=== PATIENT | female | born 1985 | race Caucasian/White ===

== ENCOUNTER 2017-03-17 10:21 | Day surgery (SDC) | payer OTHER ==
[~2017-03-17] VITALS: Ht 157.5 cm; Wt 57.2 kg
[2017-03-17] MEDS ORDERED: BUPIVACAINE-MPF 0.25% 30 ML VIAL INJ ONE (11:50)
[2017-03-17] MEDS ORDERED: SEVOFLURANE 250 ML BTL INH ONE (12:01)
[2017-03-17] MEDS ORDERED: LIDOCAINE 2% 100 MG/5 ML SYR IVP ONE (12:01)
[2017-03-17] MEDS ORDERED: PROPOFOL 200 MG/20 ML VIAL IV ONE (12:01)
[2017-03-17] MEDS ORDERED: fentaNYL 0.05 MG/ML VIAL ONE (12:17)
[2017-03-17] MEDS ORDERED: MIDAZOLAM 2 MG/2 ML VIAL ONE (12:17)
[2017-03-17] MEDS ORDERED: ONDANSETRON 4 MG/2 ML VIAL IVP PRN (12:45)
[2017-03-17] MEDS ORDERED: HYDROmorphone 1 MG/ML AMP IVP PRN ×2 (12:45→14:20)
[2017-03-17] MEDS ORDERED: MORPHINE SULFATE 4 MG/ML SYR IV PRN (14:20)
[2017-03-17] MEDS ORDERED: ONDANSETRON 4 MG/2 ML VIAL IV PRN (14:20)
[2017-03-17] MEDS ORDERED: ACETAMINOPHEN 325 MG TAB PO PRN (14:20)
[2017-03-17] MEDS ORDERED: HYDROcodone/APAP 5/325 MG 1 TAB TAB PO PRN (14:20)
[2017-03-17] MEDS: HYDROmorphone PFS 2 MG/ML SYR ONE ×2 (14:34→14:44)
== END 2017-03-17 15:45 | disposition home or self-care (01) ==
LOC: MDS 10:21 → MMU 10:22 → MDS 15:45
PROVIDERS: ATTEND Surgery
DX: M67.471 Ganglion, right ankle and foot (principal); M67.472 Ganglion, left ankle and foot; D17.1 Benign lipomatous neoplasm of skin and subcutaneous tissue of trunk; K21.9 Gastro-esophageal reflux disease without esophagitis; E66.3 Overweight; I12.9 Hypertensive chronic kidney disease with stage 1 through stage 4 chronic kidney disease, or unspecified chronic kidney disease; E11.22 Type 2 diabetes mellitus with diabetic chronic kidney disease; N18.9 Chronic kidney disease, unspecified; G40.909 Epilepsy, unspecified, not intractable, without status epilepticus; F17.210 Nicotine dependence, cigarettes, uncomplicated
CPT/HCPCS: 21933; 28090; 71010; J0690; J1170; J2001; J2250; J2704; J3010; J3490; J7060; J7120